=== PATIENT | female | born 1935 | race Asian ===

== ENCOUNTER → 2017-08-10 | Outpatient (CLI) | payer MEDICARE, OTHER ==
[~2017-08-10] MED LIST: ATOR10TA84 PO; ERGO500013 PO; IBAN150T PO
== END | disposition home or self-care (01) ==
LOC: RADPV 11:02
PROVIDERS: ATTEND Internal Medicine
DX: S32.402D Unspecified fracture of left acetabulum, subsequent encounter for fracture with routine healing (principal); X58.XXXD Exposure to other specified factors, subsequent encounter
CPT/HCPCS: 72170; 73552

== ENCOUNTER → 2018-01-26 | Outpatient (CLI) | payer MEDICARE, OTHER | END | disposition home or self-care (01) | LOC: RADPV 10:30 | PROVIDERS: ATTEND Internal Medicine | DX: I34.0 Nonrheumatic mitral (valve) insufficiency (principal); I34.1 Nonrheumatic mitral (valve) prolapse | CPT/HCPCS: 93306 ==

== ENCOUNTER → 2018-02-18 | Outpatient (CLI) | payer MEDICARE, OTHER ==
[~2018-02-18] VITALS: Ht 149.9 cm; Wt 40.0 kg
[2018-02-18 11:56] VITALS: BP 124/62
== END | disposition home or self-care (01) ==
LOC: SRCNTR 10:58
PROVIDERS: ATTEND Internal Medicine Clinical Cardiac Electrophysiology
DX: I10 Essential (primary) hypertension (principal); R00.2 Palpitations; R07.9 Chest pain, unspecified; R42 Dizziness and giddiness
CPT/HCPCS: G0463

== ENCOUNTER → 2018-02-22 | Outpatient (CLI) | payer MEDICARE, OTHER ==
[2018-02-22 09:37] VITALS: BP 134/65
== END | disposition home or self-care (01) ==
LOC: SRCNTR 09:30
PROVIDERS: ATTEND Internal Medicine Clinical Cardiac Electrophysiology
DX: I49.9 Cardiac arrhythmia, unspecified (principal)
CPT/HCPCS: G0463

== ENCOUNTER → 2018-03-02 | Outpatient (CLI) | payer MEDICARE, OTHER | END | disposition home or self-care (01) | LOC: RADPV 08:08 | PROVIDERS: ATTEND Internal Medicine Clinical Cardiac Electrophysiology | DX: I08.1 Rheumatic disorders of both mitral and tricuspid valves (principal); I50.1 Left ventricular failure, unspecified | CPT/HCPCS: 93306 ==

== ENCOUNTER → 2018-03-11 | Outpatient (CLI) | payer MEDICARE, OTHER ==
[~2018-03-11] VITALS: Ht 149.9 cm; Wt 39.5 kg
[2018-03-11 09:34] VITALS: BP 127/67
== END | disposition home or self-care (01) ==
LOC: SRCNTR 09:17
PROVIDERS: ATTEND Internal Medicine Clinical Cardiac Electrophysiology
DX: Z09 Encounter for follow-up examination after completed treatment for conditions other than malignant neoplasm (principal); R42 Dizziness and giddiness; R00.2 Palpitations; R07.9 Chest pain, unspecified; I10 Essential (primary) hypertension; Z95.818 Presence of other cardiac implants and grafts
CPT/HCPCS: G0463

== ENCOUNTER → 2018-08-15 | Outpatient (CLI) | payer MEDICARE, OTHER ==
[~2018-08-15] MED LIST changes: -IBAN150T PO; +IBAN150T16 PO; +PRED1 PO; +SULF1TAB41 PO
== END | disposition home or self-care (01) ==
LOC: RADPV 12:50
PROVIDERS: ATTEND Internal Medicine
DX: R05 Cough (principal); I70.0 Atherosclerosis of aorta; R91.8 Other nonspecific abnormal finding of lung field

== ENCOUNTER 2018-09-30 14:45 | Emergency (ER) | payer MEDICARE, OTHER ==
[~2018-09-30] VITALS: Ht 162.6 cm; Wt 45.0 kg
[~2018-09-30 14:45] MED LIST changes: -ATOR10TA84 PO; +ATOR20TA86 PO; +MIRT15 PO; -PRED1 PO; -SULF1TAB41 PO; +TIOT185 IH
[2018-09-30] MEDS ORDERED: ONDANSETRON HCL 4 MG/2 ML VIAL IVP ONE (15:00)
[2018-09-30] MEDS ORDERED: CeFAZolin 1 GM/DEXTROSE 50 ML IV ONE (15:00)
[2018-09-30] MEDS ORDERED: MORPHINE SULFATE 4 MG/ML SYRINGE IVP ONE ×2 (15:00→16:00)
[2018-09-30 15:11] LABS: BASOPHILS % (AUTO) 0.3 % (0.0-2.0); EOSINOPHILS % (AUTO) 0.6 % (1.0-6.0); HEMATOCRIT 36.7 % (36-46); HEMOGLOBIN 11.9 g/dL (12.0-16.0); LYMPHOCYTES # (AUTO) 2.8 K/uL (1.0-4.8); LYMPHOCYTES % (AUTO) 32.4 % (22.0-44.0); MEAN CORPUSCULAR HEMOGLOBIN 31.3 pg (26.0-34.0); MEAN CORPUSCULAR HGB CONC 32.5 G/dL (31.0-37.0); MEAN CORPUSCULAR VOLUME 96 fL (80-100); MONOCYTES # (AUTO) 0.5 K/uL (0.1-1.0); MONOCYTES % (AUTO) 5.4 % (2.0-9.0); NEUTROPHILS # (AUTO) 5.3 K/uL (1.8-7.7); NEUTROPHILS % (AUTO) 61.3 % (40.0-70.0); PLATELET COUNT (AUTO) 199 K/uL (150-450); RED BLOOD CELL COUNT(AUTO) 3.82 MIL/uL (4.00-5.20); RED CELL DISTRIBUTION WIDTH 16.9 % (11.5-14.5)
[2018-09-30] MEDS ORDERED: PERTUSS(ACELL),DIPH,TET VAC/PF 0.5 ML VIAL IM ONE (15:15)
[2018-09-30 15:19] LABS: ANION GAP 10 mmol/L (8-16); CALCIUM, TOTAL 9.3 mg/dL (8.8-10.5); CARBON DIOXIDE 26 mmol/L (22-29); CHLORIDE 107 mmol/L (98-107); CREATININE 0.84 mg/dL (0.60-1.30); GLUCOSE,RANDOM 111 mg/dL (70-110); POTASSIUM 3.9 mmol/L (3.5-5.1); SODIUM SERUM 143 mmol/L (136-145); UREA NITROGEN, BLOOD 22 mg/dL (7-18)
[2018-09-30 15:21] LABS: GLOMERULAR FILTR. RATE CALC > 60 mL/min (>60)
[2018-09-30 15:27] LABS: ALANINE AMINOTRANSFERASE 27 U/L (12-78); ALBUMIN 3.6 g/dL (3.4-5.0); ALKALINE PHOSPHATASE 62 U/L (46-116); ASPARTATE AMINOTRANSFERASE 29 U/L (15-37); BILIRUBIN,TOTAL 0.7 mg/dL (0.1-1.0); TOTAL PROTEIN, SERUM 7.5 g/dL (6.4-8.2)
[2018-09-30 15:43] LABS: INR 0.9 (0.9-1.1); PROTHROMBIN TIME 9.9 SEC (9.4-11.6)
[2018-09-30] MEDS ORDERED: LIDOCAINE 1% 10 ML VIAL INJ ONE (15:45)
[2018-09-30] MEDS ORDERED: BACITRACIN 0.9 GM PACKET OINTMENT TP ONE (15:45)
[2018-09-30] MEDS ORDERED: MORPHINE SULFATE 2 MG/ML SYRINGE IVP ONE (16:00)
[2018-09-30] MEDS ORDERED: LIDOCAINE 1%/EPI 1:200,000/PF 10 ML VIAL ONE (16:24)
[2018-09-30 17:55] VITALS: BP 130/79
== END 2018-09-30 18:10 | disposition short-term general hospital (02) ==
LOC: EMS 14:48
DX: S81.812A Laceration without foreign body, left lower leg, initial encounter (principal); I10 Essential (primary) hypertension; E78.00 Pure hypercholesterolemia, unspecified; Z87.891 Personal history of nicotine dependence; Z79.899 Other long term (current) drug therapy; W45.8XXA Other foreign body or object entering through skin, initial encounter; Y93.89 Activity, other specified; Y92.89 Other specified places as the place of occurrence of the external cause; Y99.8 Other external cause status
CPT/HCPCS: 36415; 73562; 73590; 73610; 80053; 85025; 85610; 85730; 90471; 90715; 96365; 96375; 96376; 99291; J0690; J2270 ×2; J2405; J3490 ×2

== ENCOUNTER → 2018-10-17 | Outpatient (CLI) | payer MEDICARE, OTHER ==
[~2018-10-17] MED LIST changes: +IOVERSOL 320 MG/ML 100 ML VIAL ONE; +SODIUM CHLORIDE 0.9% 100 ML ONE
== END | disposition home or self-care (01) ==
LOC: RADMN 08:27
PROVIDERS: ATTEND Internal Medicine
DX: J47.9 Bronchiectasis, uncomplicated (principal); R91.8 Other nonspecific abnormal finding of lung field; R59.9 Enlarged lymph nodes, unspecified
CPT/HCPCS: 71260; J7050; Q9967

== ENCOUNTER → 2019-01-02 | Outpatient (CLI) | payer MEDICARE, OTHER | END | disposition home or self-care (01) | LOC: RADMN 08:43 | PROVIDERS: ATTEND Internal Medicine | DX: R91.8 Other nonspecific abnormal finding of lung field (principal) | CPT/HCPCS: 71260; J7050; Q9967 ==

== ENCOUNTER → 2019-03-21 | Outpatient (CLI) | payer MEDICARE, OTHER ==
[~2019-03-21] MED LIST changes: -IOVERSOL 320 MG/ML 100 ML VIAL ONE; -SODIUM CHLORIDE 0.9% 100 ML ONE
[2019-03-23 13:30] LABS: QUANTIFERON+, Nil Value 0.03 IU/mL; QUANTIFERON+,Mitogen Value 0.52 IU/mL; QUANTIFERON+,TB1 Antigen Value 0.04 IU/mL; QUANTIFERON, TB GOLD PLUS Indeterminate (Negative)
== END | disposition home or self-care (01) ==
LOC: LABPV 11:07
PROVIDERS: ATTEND Internal Medicine Pulmonary Disease
DX: J98.4 Other disorders of lung (principal); J47.9 Bronchiectasis, uncomplicated
CPT/HCPCS: 86480; 86635

== ENCOUNTER 2019-04-02 14:37 | Inpatient (IN) | payer MEDICARE, OTHER ==
[~2019-04-02] VITALS: Ht 147.3 cm; Wt 37.1 kg
[2019-04-02] MEDS ORDERED: SULF1TAB42 PO (15:23)
[2019-04-02 16:05] LABS: BASOPHILS % (AUTO) 0.1 % (0.0-2.0); EOSINOPHILS % (AUTO) 0 % (1.0-6.0); HEMATOCRIT 41.3 % (36-46); HEMOGLOBIN 13.7 g/dL (12.0-16.0); LYMPHOCYTES # (AUTO) 1.1 K/uL (1.0-4.8); LYMPHOCYTES % (AUTO) 7.5 % (22.0-44.0); MEAN CORPUSCULAR HEMOGLOBIN 30.2 pg (26.0-34.0); MEAN CORPUSCULAR HGB CONC 33.3 G/dL (31.0-37.0); MEAN CORPUSCULAR VOLUME 91 fL (80-100); MONOCYTES # (AUTO) 0.8 K/uL (0.1-1.0); MONOCYTES % (AUTO) 5.4 % (2.0-9.0); NEUTROPHILS # (AUTO) 13.3 K/uL (1.8-7.7); PLATELET COUNT (AUTO) 185 K/uL (150-450); RED BLOOD CELL COUNT(AUTO) 4.55 MIL/uL (4.00-5.20); RED CELL DISTRIBUTION WIDTH 14.5 % (11.5-14.5)
[2019-04-02 16:21] LABS: TROPONIN I 0.03 ng/mL (0.00-0.05)
[2019-04-02 16:23] LABS: AMMONIA < 10 umol/L (11-32)
[2019-04-02] MEDS ORDERED: ERGO500014 PO (16:30)
[2019-04-02] MEDS ORDERED: SODIUM CHLORIDE 0.9% 500 ML IV ONE (16:30)
[2019-04-02] MEDS ORDERED: BACITRACIN 0.9 GM PACKET OINTMENT TP ONE (16:30)
[2019-04-02] MEDS ORDERED: DOXYCYCLINE HYCLATE 100 MG in DEXTROSE 5%-WATER 100 ML IV ONE (16:30)
[2019-04-02] MEDS ORDERED: CefTRIAXone 1 GM/DEXTROSE 50 ML IV ONE (16:30)
[2019-04-02 16:41] LABS: APPEARANCE,URINE CLEAR (CLEAR); BILIRUBIN,URINE NEGATIVE (NEGATIVE); GLUCOSE, URINE (UA) NEGATIVE (NEGATIVE); KETONES,URINE 40 mg/dL (NEGATIVE); LEUKOCYTE ESTERASE ,URINE NEGATIVE (NEGATIVE); NITRATE,URINE NEGATIVE (NEGATIVE); OCCULT BLOOD,URINE LARGE (NEGATIVE); PH,URINE 5.5 (5.0-8.0); PROTEIN,URINE POS 1+ (NEGATIVE); UROBILINOGEN,URINE 0.2 mg/dL (<=1.0)
[2019-04-02 16:45] LABS: PLATELET MORPHOLOGY COMMENT NORMAL
[2019-04-02 16:46] LABS: AMPHET/METH SCREEN,URINE NEGATIVE (NEGATIVE); BARBITURATE SCREEN, URINE NEGATIVE (NEGATIVE); BENZODIAZEPINES SCREEN,URINE NEGATIVE (NEGATIVE); CANNABINOID SCREEN,URINE NEGATIVE (NEGATIVE); COCAINE SCREEN,URINE NEGATIVE (NEGATIVE); METHADONE SCREEN, URINE NEGATIVE (NEGATIVE); OPIATE SCREEN,URINE NEGATIVE (NEGATIVE)
[2019-04-02 16:47] LABS: PHENCYCLIDINE SCREEN,URINE NEGATIVE (NEGATIVE)
[2019-04-02 16:51] LABS: ALANINE AMINOTRANSFERASE 56 U/L (12-78); ALBUMIN 3.6 g/dL (3.4-5.0); ALKALINE PHOSPHATASE 66 U/L (46-116); ANION GAP 8 mmol/L (8-16); ASPARTATE AMINOTRANSFERASE 176 U/L (15-37); B-TYPE NATRIURETIC PEPTIDE 82 pg/mL (0-100); BILIRUBIN,TOTAL 1.6 mg/dL (0.1-1.0); CALCIUM, TOTAL 8.8 mg/dL (8.8-10.5); CARBON DIOXIDE 27 mmol/L (22-29); CHLORIDE 97 mmol/L (98-107); CREATININE 0.83 mg/dL (0.60-1.30); GLUCOSE,RANDOM 145 mg/dL (70-110); POTASSIUM 4.1 mmol/L (3.5-5.1); SODIUM SERUM 132 mmol/L (136-145); TOTAL PROTEIN, SERUM 8.4 g/dL (6.4-8.2)
[2019-04-02 16:52] LABS: GLOMERULAR FILTR. RATE CALC > 60 mL/min (>60)
[2019-04-02 16:53] LABS: CREATINE KINASE, TOTAL ONLY 6223 U/L (26-192)
[2019-04-02 16:54] LABS: PROTHROMBIN TIME 10.1 SEC (9.4-11.6)
[2019-04-02 16:58] LABS: BACTERIA,URINE Few /HPF (None Seen); SQUAMOUS EPITHELIAL CELL,UR Few /LPF (None Seen)
[2019-04-02 17:09] LABS: UREA NITROGEN, BLOOD 25 mg/dL (7-18)
[2019-04-02] MEDS ORDERED: SODIUM CHLORIDE 0.9% 1,000 ML IV ONE (17:15)
[2019-04-02] MEDS ORDERED: ACETAMINOPHEN 325 MG TABLET PO PRN (17:30)
[2019-04-02] MEDS ORDERED: 0.9% SODIUM CHLORIDE 10 ML SYRINGE IVP PRN (17:30)
[2019-04-02] MEDS ORDERED: ONDANSETRON HCL 4 MG/2 ML VIAL IVP PRN (17:30)
[2019-04-02 19:15] VITALS: BP 104/62
[2019-04-02 23:44] VITALS: BP 101/63
[2019-04-03] MEDS ORDERED: OxyCODONE HCL/ACETAMINOPHEN 5-325 MG TABLET PO PRN ×2 (00:45)
[2019-04-03] MEDS ORDERED: ONDANSETRON HCL 4 MG/2 ML VIAL IVP PRN ×2 (00:45→13:45)
[2019-04-03] MEDS ORDERED: 0.9% SODIUM CHLORIDE 10 ML SYRINGE IVP PRN ×3 (00:45→13:45)
[2019-04-03] MEDS ORDERED: MAGNESIUM HYDROXIDE SUSPENSION 30 ML UDCUP PO PRN (00:45)
[2019-04-03] MEDS ORDERED: ALBUTEROL SULFATE 2.5 MG/0.5 ML NEB SOLUTION NEB PRN ×2 (00:45→13:45)
[2019-04-03] MEDS ORDERED: ACETAMINOPHEN 325 MG TABLET PO PRN ×2 (00:45→13:45)
[2019-04-03] MEDS: DOCUSATE SODIUM 100 MG CAPSULE PO SCH ×3 (00:45→20:46)
[2019-04-03] MEDS ORDERED: PNEUMOCOCCAL VACCINE POLYVALENT 0.5 ML VIAL [PPSV23] IM ONE (03:45)
[2019-04-03] MEDS ORDERED: INFLUENZA VIRUS VACCINE QVS 2019-20 (3YR+)/PF 60 MCG/0.5 ML SYRINGE IM ONE (03:45)
[2019-04-03 04:09] VITALS: BP 100/53
[2019-04-03 07:40] VITALS: BP 87/77
[2019-04-03] MEDS: FAMOTIDINE 10 MG/ML 2 ML VIAL IVP SCH (09:28)
[2019-04-03] MEDS: TIOTROPIUM BROMIDE 18 MCG/INH HANDIHALER [5] IH SCH (09:28)
[2019-04-03] MEDS: SODIUM CHLORIDE 0.9% 1,000 ML IV SCH ×3 (09:28→22:13)
[2019-04-03 10:42] VITALS: BP 95/54
[2019-04-03] MEDS ORDERED: IPRATROPIUM BROMIDE 0.5 MG/2.5 ML NEB SOLUTION NEB PRN (13:45)
[2019-04-03] MEDS ORDERED: ZOLPIDEM TARTRATE 5 MG TABLET PO PRN (13:45)
[2019-04-03] MEDS ORDERED: PIPERACILLIN/TAZO 3.375 GM/D5W 50 ML IV SCH (13:45)
[2019-04-03] MEDS ORDERED: VANCOMYCIN HCL 1 GM/D5% WATER 200 ML IV SCH (13:45)
[2019-04-03] MEDS ORDERED: MORPHINE SULFATE 2 MG/ML SYRINGE IVP PRN (13:45)
[2019-04-03 15:11] VITALS: BP 95/56
[2019-04-03] MEDS: HYDROCODONE/ACETAMINOPHEN 5-325 MG TABLET PO PRN (15:34)
[2019-04-03] MEDS: PANTOPRAZOLE SODIUM 40 MG DR TABLET PO SCH (15:34)
[2019-04-03] MEDS: PIPERACILLIN SODIUM/TAZOBACTAM 2.25 GM in DEXTROSE 5%-WATER 50 ML IV SCH ×2 (15:45→20:45)
[2019-04-03] MEDS ORDERED: VANCOMYCIN HCL 1 GM/D5% WATER 200 ML IV ONE (16:00)
[2019-04-03] MEDS ORDERED: CefTRIAXone 1 GM/DEXTROSE 50 ML IV SCH (17:00)
[2019-04-03] MEDS: MIRTAZAPINE 15 MG TABLET PO SCH (20:45)
[2019-04-03] MEDS: HEPARIN SODIUM,PORCINE 5,000 UNITS/ML VIAL SQ SCH (20:46)
[2019-04-03 20:50] VITALS: BP 92/53
[2019-04-03 23:50] VITALS: BP 122/59
[2019-04-04] MEDS: PIPERACILLIN SODIUM/TAZOBACTAM 2.25 GM in DEXTROSE 5%-WATER 50 ML IV SCH ×4 (03:23→16:28)
[2019-04-04 05:02] VITALS: BP 118/65
[2019-04-04] MEDS: SODIUM CHLORIDE 0.9% 1,000 ML IV SCH ×2 (05:50→16:26)
[2019-04-04] MEDS: PANTOPRAZOLE SODIUM 40 MG DR TABLET PO SCH (05:51)
[2019-04-04 06:32] LABS: BASOPHILS % (AUTO) 0.2 % (0.0-2.0); EOSINOPHILS % (AUTO) 0.9 % (1.0-6.0); HEMATOCRIT 32.4 % (36-46); HEMOGLOBIN 11.2 g/dL (12.0-16.0); LYMPHOCYTES # (AUTO) 1.7 K/uL (1.0-4.8); LYMPHOCYTES % (AUTO) 25.7 % (22.0-44.0); MEAN CORPUSCULAR HEMOGLOBIN 31.2 pg (26.0-34.0); MEAN CORPUSCULAR HGB CONC 34.5 G/dL (31.0-37.0); MEAN CORPUSCULAR VOLUME 90 fL (80-100); MONOCYTES # (AUTO) 0.5 K/uL (0.1-1.0); MONOCYTES % (AUTO) 8.2 % (2.0-9.0); NEUTROPHILS # (AUTO) 4.4 K/uL (1.8-7.7); PLATELET COUNT (AUTO) 154 K/uL (150-450); RED BLOOD CELL COUNT(AUTO) 3.58 MIL/uL (4.00-5.20); RED CELL DISTRIBUTION WIDTH 14.1 % (11.5-14.5)
[2019-04-04 06:37] LABS: HEMOGLOBIN A1C 4.3 % (4.5-6.2)
[2019-04-04 06:53] LABS: ANION GAP 7 mmol/L (8-16); CALCIUM, TOTAL 7.4 mg/dL (8.8-10.5); CARBON DIOXIDE 26 mmol/L (22-29); CHLORIDE 108 mmol/L (98-107); CHOL/HDL RATIO 2.7 (3.9-5.7); CHOLESTEROL 130 mg/dL (131-200); GLUCOSE,RANDOM 91 mg/dL (70-110); HDL CHOLESTEROL 48 mg/dL (40-60); LDL CHOL (CALC.) 62 mg/dL (0-130); POTASSIUM 3.7 mmol/L (3.5-5.1); SODIUM SERUM 141 mmol/L (136-145); THYROID STIMULATING HORMONE 1.01 uIU/mL (0.36-3.74); TRIGLYCERIDES 100 mg/dL (15-150); UREA NITROGEN, BLOOD 15 mg/dL (7-18)
[2019-04-04 06:55] LABS: GLOMERULAR FILTR. RATE CALC > 60 mL/min (>60)
[2019-04-04 07:42] VITALS: BP 103/42
[2019-04-04] MEDS: VANCOMYCIN HCL 1 GM/D5% WATER 200 ML IV SCH (08:24)
[2019-04-04] MEDS: FAMOTIDINE 10 MG/ML 2 ML VIAL IVP SCH (08:30)
[2019-04-04] MEDS: HEPARIN SODIUM,PORCINE 5,000 UNITS/ML VIAL SQ SCH ×2 (08:31→20:29)
[2019-04-04 09:11] LABS: CREATINE KINASE, TOTAL ONLY 2039 U/L (26-192)
[2019-04-04] MEDS ORDERED: IOVERSOL 350 MG/ML 100 ML VIAL ONE (09:24)
[2019-04-04] MEDS ORDERED: SODIUM CHLORIDE 0.9% 100 ML ONE (09:24)
[2019-04-04] MEDS: MULTIVITAMINS WITH MINERALS, THERAPEUTIC TABLET PO SCH (11:16)
[2019-04-04] MEDS: TIOTROPIUM BROMIDE 18 MCG/INH HANDIHALER [5] IH SCH (11:16)
[2019-04-04] MEDS: DOCUSATE SODIUM 100 MG CAPSULE PO SCH ×2 (11:16→20:29)
[2019-04-04 11:26] VITALS: BP 115/47
[2019-04-04 15:58] VITALS: BP 136/59
[2019-04-04] MEDS: HYDROCODONE/ACETAMINOPHEN 5-325 MG TABLET PO PRN (16:37)
[2019-04-04 20:14] VITALS: BP 119/62
[2019-04-04] MEDS: MIRTAZAPINE 15 MG TABLET PO SCH (20:29)
[2019-04-05 00:30] VITALS: BP 116/71
[2019-04-05] MEDS: SODIUM CHLORIDE 0.9% 1,000 ML IV SCH ×2 (00:30→05:25)
[2019-04-05] MEDS: PIPERACILLIN SODIUM/TAZOBACTAM 2.25 GM in DEXTROSE 5%-WATER 50 ML IV SCH ×2 (03:18→10:12)
[2019-04-05 04:20] VITALS: BP 136/64
[2019-04-05] MEDS: PANTOPRAZOLE SODIUM 40 MG DR TABLET PO SCH (05:26)
[2019-04-05 06:55] LABS: BASOPHILS % (AUTO) 0.5 % (0.0-2.0); EOSINOPHILS % (AUTO) 3.8 % (1.0-6.0); HEMATOCRIT 31.2 % (36-46); HEMOGLOBIN 10.6 g/dL (12.0-16.0); LYMPHOCYTES # (AUTO) 1.7 K/uL (1.0-4.8); LYMPHOCYTES % (AUTO) 26.1 % (22.0-44.0); MEAN CORPUSCULAR HEMOGLOBIN 31.1 pg (26.0-34.0); MEAN CORPUSCULAR HGB CONC 33.9 G/dL (31.0-37.0); MEAN CORPUSCULAR VOLUME 92 fL (80-100); MONOCYTES # (AUTO) 0.5 K/uL (0.1-1.0); MONOCYTES % (AUTO) 6.9 % (2.0-9.0); NEUTROPHILS # (AUTO) 4.1 K/uL (1.8-7.7); NEUTROPHILS % (AUTO) 62.7 % (40.0-70.0); PLATELET COUNT (AUTO) 177 K/uL (150-450); RED CELL DISTRIBUTION WIDTH 14.4 % (11.5-14.5)
[2019-04-05] MEDS: VANCOMYCIN HCL 1 GM/D5% WATER 200 ML IV SCH (07:31)
[2019-04-05 07:39] LABS: ALANINE AMINOTRANSFERASE 46 U/L (12-78); ALBUMIN 2.2 g/dL (3.4-5.0); ALKALINE PHOSPHATASE 42 U/L (46-116); ANION GAP 2 mmol/L (8-16); ASPARTATE AMINOTRANSFERASE 92 U/L (15-37); BILIRUBIN,TOTAL 0.6 mg/dL (0.1-1.0); CALCIUM, TOTAL 7.3 mg/dL (8.8-10.5); CARBON DIOXIDE 30 mmol/L (22-29); CHLORIDE 108 mmol/L (98-107); CREATINE KINASE, TOTAL ONLY 1440 U/L (26-192); CREATININE 0.63 mg/dL (0.60-1.30); GLOMERULAR FILTR. RATE CALC > 60 mL/min (>60); GLUCOSE,RANDOM 82 mg/dL (70-110); PHOSPHORUS 2.5 mg/dL (2.5-4.9); POTASSIUM 3.6 mmol/L (3.5-5.1); SODIUM SERUM 140 mmol/L (136-145); TOTAL PROTEIN, SERUM 5.7 g/dL (6.4-8.2); UREA NITROGEN, BLOOD 6 mg/dL (7-18); VANCOMYCIN,RANDOM 9.7 mcg/mL (25.0-50.0)
[2019-04-05 08:15] VITALS: BP 136/72
[2019-04-05] MEDS: DOCUSATE SODIUM 100 MG CAPSULE PO SCH (08:46)
[2019-04-05] MEDS: TIOTROPIUM BROMIDE 18 MCG/INH HANDIHALER [5] IH SCH (08:46)
[2019-04-05] MEDS: FAMOTIDINE 10 MG/ML 2 ML VIAL IVP SCH (08:47)
[2019-04-05] MEDS: HEPARIN SODIUM,PORCINE 5,000 UNITS/ML VIAL SQ SCH (08:47)
[2019-04-05] MEDS: MULTIVITAMINS WITH MINERALS, THERAPEUTIC TABLET PO SCH (08:48)
[2019-04-05 11:50] VITALS: BP 140/71
[2019-04-05] MEDS ORDERED: AMPICILLIN SODIUM/SULBACTAM NA 1.5 GM in SODIUM CHLORIDE 0.9% 50 ML IV SCH (15:00)
[2019-04-05 15:23] VITALS: BP 127/70
[2019-04-05] MEDS ORDERED: VANCOMYCIN HCL 500 MG in DEXTROSE 5%-WATER 100 ML IV SCH (19:00)
== END 2019-04-05 17:07 | DRG 557 ==
LOC: EMS 14:49 → 5N 18:21 → EMS 18:36 → 5N 04-04 10:00
PROVIDERS: ADMIT Internal Medicine; ATTEND Internal Medicine
DX: M62.82 Rhabdomyolysis (principal); G93.41 Metabolic encephalopathy; N39.0 Urinary tract infection, site not specified; R17 Unspecified jaundice; L03.115 Cellulitis of right lower limb; E87.1 Hypo-osmolality and hyponatremia; E86.0 Dehydration; I10 Essential (primary) hypertension; E78.5 Hyperlipidemia, unspecified; J44.9 Chronic obstructive pulmonary disease, unspecified; E78.00 Pure hypercholesterolemia, unspecified; W19.XXXA Unspecified fall, initial encounter; F17.200 Nicotine dependence, unspecified, uncomplicated; M81.0 Age-related osteoporosis without current pathological fracture; S50.311A Abrasion of right elbow, initial encounter; R31.9 Hematuria, unspecified; D64.9 Anemia, unspecified; B95.2 Enterococcus as the cause of diseases classified elsewhere; Y93.89 Activity, other specified; Y92.89 Other specified places as the place of occurrence of the external cause; Y99.8 Other external cause status; Z86.73 Personal history of transient ischemic attack (TIA), and cerebral infarction without residual deficits
CPT/HCPCS: 70450; 71250; 72125; 73552; 73701; 83036; 83605; 83735; 84100; 84443; 87040; 87070; 87086; 87205; 90686; 90732; 93005; 97110; 97116; 97162; 97166; 97530; 97535; G0480; J0295; J0696; J1644; J2405; J2543; J3370; J3490; J7030; J7040; J7050; J7060

== ENCOUNTER 2019-04-05 17:15 | Inpatient (IN) | payer MEDICARE, OTHER ==
[~2019-04-05] VITALS: Ht 147.3 cm; Wt 38.1 kg
[~2019-04-05 17:15] MED LIST changes: -ERGO500013 PO; +ERGO500014 PO; +SULF1TAB42 PO
[2019-04-05 17:20] VITALS: BP 137/72
[2019-04-05] MEDS ORDERED: ALBUTEROL SULFATE 2.5 MG/0.5 ML NEB SOLUTION NEB PRN (19:15)
[2019-04-05] MEDS ORDERED: MELATONIN 3 MG TABLET PO PRN (19:15)
[2019-04-05] MEDS ORDERED: ACETAMINOPHEN 325 MG TABLET PO PRN (19:15)
[2019-04-05] MEDS ORDERED: HYDROCODONE/ACETAMINOPHEN 5-325 MG TABLET PO PRN (19:15)
[2019-04-05] MEDS ORDERED: IPRATROPIUM BROMIDE 0.5 MG/2.5 ML NEB SOLUTION NEB PRN (19:15)
[2019-04-05] MEDS ORDERED: VANCOMYCIN HCL 1 GM/D5% WATER 200 ML IV ONE (20:00)
[2019-04-05] MEDS ORDERED: VANCOMYCIN HCL 500 MG in DEXTROSE 5%-WATER 100 ML IV ONE (20:00)
[2019-04-05] MEDS: HEPARIN SODIUM,PORCINE 5,000 UNITS/ML VIAL SQ SCH (21:25)
[2019-04-05] MEDS: MIRTAZAPINE 15 MG TABLET PO SCH (21:25)
[2019-04-05] MEDS: FAMOTIDINE 20 MG TABLET PO SCH (21:25)
[2019-04-05] MEDS: DOCUSATE SODIUM 100 MG CAPSULE PO SCH (21:25)
[2019-04-05] MEDS ORDERED: SODIUM CHLORIDE 0.9% 100 ML ONE (23:20)
[2019-04-05] MEDS: 0.9% SODIUM CHLORIDE 10 ML SYRINGE IVP SCH (23:42)
[2019-04-05] MEDS: AMPICILLIN SODIUM/SULBACTAM NA 1.5 GM in SODIUM CHLORIDE 0.9% 50 ML IV SCH (23:43)
[2019-04-06] MEDS ORDERED: AMPICILLIN SODIUM/SULBACTAM NA 1.5 GM/VIAL IM SCH
[2019-04-06 00:27] VITALS: BP 132/69
[2019-04-06] MEDS: AMPICILLIN SODIUM/SULBACTAM NA 1.5 GM in SODIUM CHLORIDE 0.9% 50 ML IV SCH ×4 (05:12→23:49)
[2019-04-06 06:14] LABS: BASOPHILS % (AUTO) 0.4 % (0.0-2.0); EOSINOPHILS % (AUTO) 2.8 % (1.0-6.0); HEMATOCRIT 31.6 % (36-46); HEMOGLOBIN 10.9 g/dL (12.0-16.0); LYMPHOCYTES # (AUTO) 2.1 K/uL (1.0-4.8); LYMPHOCYTES % (AUTO) 23.3 % (22.0-44.0); MEAN CORPUSCULAR HEMOGLOBIN 31.2 pg (26.0-34.0); MEAN CORPUSCULAR HGB CONC 34.5 G/dL (31.0-37.0); MEAN CORPUSCULAR VOLUME 90 fL (80-100); MONOCYTES # (AUTO) 0.5 K/uL (0.1-1.0); MONOCYTES % (AUTO) 5.8 % (2.0-9.0); NEUTROPHILS % (AUTO) 67.7 % (40.0-70.0); PLATELET COUNT (AUTO) 224 K/uL (150-450); RED BLOOD CELL COUNT(AUTO) 3.49 MIL/uL (4.00-5.20); RED CELL DISTRIBUTION WIDTH 14.3 % (11.5-14.5)
[2019-04-06 06:57] LABS: ALANINE AMINOTRANSFERASE 46 U/L (12-78); ALBUMIN 2.3 g/dL (3.4-5.0); ALKALINE PHOSPHATASE 49 U/L (46-116); ANION GAP 7 mmol/L (8-16); ASPARTATE AMINOTRANSFERASE 90 U/L (15-37); BILIRUBIN,TOTAL 0.7 mg/dL (0.1-1.0); CALCIUM, TOTAL 7.9 mg/dL (8.8-10.5); CARBON DIOXIDE 28 mmol/L (22-29); CHLORIDE 105 mmol/L (98-107); CREATININE 0.71 mg/dL (0.60-1.30); GLUCOSE,RANDOM 95 mg/dL (70-110); POTASSIUM 3.6 mmol/L (3.5-5.1); SODIUM SERUM 140 mmol/L (136-145); UREA NITROGEN, BLOOD 8 mg/dL (7-18)
[2019-04-06 06:58] LABS: CREATINE KINASE, TOTAL ONLY 1076 U/L (26-192); GLOMERULAR FILTR. RATE CALC > 60 mL/min (>60)
[2019-04-06] MEDS ORDERED: VANCOMYCIN HCL 500 MG in DEXTROSE 5%-WATER 100 ML IV SCH (07:00)
[2019-04-06] MEDS ORDERED: VANCOMYCIN HCL 1 GM/D5% WATER 200 ML IV SCH (07:00)
[2019-04-06] MEDS: TIOTROPIUM BROMIDE 18 MCG/INH HANDIHALER [5] IH SCH (08:40)
[2019-04-06] MEDS: HEPARIN SODIUM,PORCINE 5,000 UNITS/ML VIAL SQ SCH ×2 (08:41→20:03)
[2019-04-06] MEDS: DOCUSATE SODIUM 100 MG CAPSULE PO SCH (08:41)
[2019-04-06] MEDS: MULTIVITAMINS WITH MINERALS, THERAPEUTIC TABLET PO SCH (08:41)
[2019-04-06] MEDS: FAMOTIDINE 20 MG TABLET PO SCH ×2 (08:41→20:02)
[2019-04-06] MEDS: 0.9% SODIUM CHLORIDE 10 ML SYRINGE IVP SCH ×3 (08:42→23:49)
[2019-04-06 09:24] VITALS: BP 135/74
[2019-04-06 15:30] VITALS: BP 138/58
[2019-04-06] MEDS: SENNA 187 MG TABLET PO SCH (20:02)
[2019-04-06] MEDS: MIRTAZAPINE 15 MG TABLET PO SCH (20:02)
[2019-04-06] MEDS: DOCUSATE SODIUM 250 MG CAPSULE PO SCH (20:02)
[2019-04-06] MEDS ORDERED: SODIUM CHLORIDE 0.9% 100 ML ONE (23:57)
[2019-04-07] VITALS: BP 132/61
[2019-04-07] MEDS: AMPICILLIN SODIUM/SULBACTAM NA 1.5 GM in SODIUM CHLORIDE 0.9% 50 ML IV SCH ×4 (05:36→23:36)
[2019-04-07 07:48] VITALS: BP 160/78
[2019-04-07] MEDS: DOCUSATE SODIUM 250 MG CAPSULE PO SCH ×2 (08:43→22:19)
[2019-04-07] MEDS: TIOTROPIUM BROMIDE 18 MCG/INH HANDIHALER [5] IH SCH (08:43)
[2019-04-07] MEDS: HEPARIN SODIUM,PORCINE 5,000 UNITS/ML VIAL SQ SCH ×2 (08:44→22:19)
[2019-04-07] MEDS: FAMOTIDINE 20 MG TABLET PO SCH ×2 (08:44→22:19)
[2019-04-07] MEDS: MULTIVITAMINS WITH MINERALS, THERAPEUTIC TABLET PO SCH (08:44)
[2019-04-07] MEDS: 0.9% SODIUM CHLORIDE 10 ML SYRINGE IVP SCH ×3 (08:54→23:36)
[2019-04-07] MEDS ORDERED: SODIUM CHLORIDE 0.9% IRRIG BTL 1,000 ML IRRIG ONE (10:37)
[2019-04-07] MEDS: ValACYclovir HCL 500 MG TABLET PO SCH ×2 (14:49→22:19)
[2019-04-07 16:18] VITALS: BP 131/80
[2019-04-07] MEDS: SENNA 187 MG TABLET PO SCH (22:19)
[2019-04-07] MEDS: MIRTAZAPINE 15 MG TABLET PO SCH (22:19)
[2019-04-08 00:44] VITALS: BP 123/69
[2019-04-08] MEDS: AMPICILLIN SODIUM/SULBACTAM NA 1.5 GM in SODIUM CHLORIDE 0.9% 50 ML IV SCH ×4 (05:25→23:16)
[2019-04-08 08:39] VITALS: BP 115/68
[2019-04-08] MEDS: FAMOTIDINE 20 MG TABLET PO SCH ×2 (09:15→20:21)
[2019-04-08] MEDS: ValACYclovir HCL 500 MG TABLET PO SCH ×2 (09:15→20:21)
[2019-04-08] MEDS: TIOTROPIUM BROMIDE 18 MCG/INH HANDIHALER [5] IH SCH (09:15)
[2019-04-08] MEDS: DOCUSATE SODIUM 250 MG CAPSULE PO SCH ×2 (09:15→20:21)
[2019-04-08] MEDS: HEPARIN SODIUM,PORCINE 5,000 UNITS/ML VIAL SQ SCH ×2 (09:16→20:22)
[2019-04-08] MEDS: MULTIVITAMINS WITH MINERALS, THERAPEUTIC TABLET PO SCH (09:16)
[2019-04-08] MEDS: 0.9% SODIUM CHLORIDE 10 ML SYRINGE IVP SCH ×3 (09:16→23:17)
[2019-04-08] MEDS: ZINC SULFATE 220 MG CAPSULE PO SCH (12:37)
[2019-04-08] MEDS: CALCIUM CIT/VITAMIN D3 200 MG-250 UNITS TABLET PO SCH ×2 (12:38→20:21)
[2019-04-08 16:47] VITALS: BP 121/70
[2019-04-08] MEDS: SENNA 187 MG TABLET PO SCH (20:21)
[2019-04-08] MEDS: MIRTAZAPINE 15 MG TABLET PO SCH (20:21)
[2019-04-08 23:28] VITALS: BP 132/74
[2019-04-09] MEDS: AMPICILLIN SODIUM/SULBACTAM NA 1.5 GM in SODIUM CHLORIDE 0.9% 50 ML IV SCH ×4 (05:07→23:27)
[2019-04-09 08:01] VITALS: BP 112/63
[2019-04-09] MEDS: TIOTROPIUM BROMIDE 18 MCG/INH HANDIHALER [5] IH SCH (08:10)
[2019-04-09] MEDS: ZINC SULFATE 220 MG CAPSULE PO SCH (08:11)
[2019-04-09] MEDS: MULTIVITAMINS WITH MINERALS, THERAPEUTIC TABLET PO SCH (08:11)
[2019-04-09] MEDS: CALCIUM CIT/VITAMIN D3 200 MG-250 UNITS TABLET PO SCH ×2 (08:11→20:59)
[2019-04-09] MEDS: ValACYclovir HCL 500 MG TABLET PO SCH ×2 (08:11→20:59)
[2019-04-09] MEDS: DOCUSATE SODIUM 250 MG CAPSULE PO SCH ×2 (08:11→20:59)
[2019-04-09] MEDS: FAMOTIDINE 20 MG TABLET PO SCH ×2 (08:11→20:59)
[2019-04-09] MEDS: HEPARIN SODIUM,PORCINE 5,000 UNITS/ML VIAL SQ SCH ×2 (08:12→20:59)
[2019-04-09] MEDS: 0.9% SODIUM CHLORIDE 10 ML SYRINGE IVP SCH ×3 (08:12→23:27)
[2019-04-09] MEDS ORDERED: SODIUM CHLORIDE 0.9% 50 ML ONE (12:18)
[2019-04-09 15:59] VITALS: BP 112/58
[2019-04-09] MEDS: MIRTAZAPINE 15 MG TABLET PO SCH (20:59)
[2019-04-09] MEDS: SENNA 187 MG TABLET PO SCH (20:59)
[2019-04-09] MEDS ORDERED: SODIUM CHLORIDE 0.9% 100 ML ONE (23:32)
[2019-04-09 23:47] VITALS: BP 102/60
[2019-04-10] MEDS: AMPICILLIN SODIUM/SULBACTAM NA 1.5 GM in SODIUM CHLORIDE 0.9% 50 ML IV SCH ×4 (05:24→23:25)
[2019-04-10 07:58] VITALS: BP 132/71
[2019-04-10] MEDS: ZINC SULFATE 220 MG CAPSULE PO SCH (08:06)
[2019-04-10] MEDS: TIOTROPIUM BROMIDE 18 MCG/INH HANDIHALER [5] IH SCH (08:06)
[2019-04-10] MEDS: CALCIUM CIT/VITAMIN D3 200 MG-250 UNITS TABLET PO SCH ×2 (08:07→21:32)
[2019-04-10] MEDS: ValACYclovir HCL 500 MG TABLET PO SCH ×2 (08:07→21:36)
[2019-04-10] MEDS: DOCUSATE SODIUM 250 MG CAPSULE PO SCH ×2 (08:07→21:32)
[2019-04-10] MEDS: MULTIVITAMINS WITH MINERALS, THERAPEUTIC TABLET PO SCH (08:08)
[2019-04-10] MEDS: HEPARIN SODIUM,PORCINE 5,000 UNITS/ML VIAL SQ SCH ×2 (08:08→21:35)
[2019-04-10] MEDS: FAMOTIDINE 20 MG TABLET PO SCH ×2 (08:08→21:34)
[2019-04-10] MEDS: 0.9% SODIUM CHLORIDE 10 ML SYRINGE IVP SCH ×3 (08:09→23:24)
[2019-04-10 16:33] VITALS: BP 128/63
[2019-04-10] MEDS: SENNA 187 MG TABLET PO SCH (21:34)
[2019-04-10] MEDS: MIRTAZAPINE 15 MG TABLET PO SCH (21:34)
[2019-04-10] MEDS: COLD CREAM, SKIN EMOLLIENT 170 GM JAR TP SCH (21:35)
[2019-04-10 23:45] VITALS: BP 119/56
[2019-04-11] MEDS: AMPICILLIN SODIUM/SULBACTAM NA 1.5 GM in SODIUM CHLORIDE 0.9% 50 ML IV SCH ×4 (05:38→23:59)
[2019-04-11 07:25] VITALS: BP 114/64
[2019-04-11] MEDS: HEPARIN SODIUM,PORCINE 5,000 UNITS/ML VIAL SQ SCH ×2 (08:09→20:59)
[2019-04-11] MEDS: ValACYclovir HCL 500 MG TABLET PO SCH ×2 (08:09→20:59)
[2019-04-11] MEDS: CALCIUM CIT/VITAMIN D3 200 MG-250 UNITS TABLET PO SCH ×2 (08:09→20:59)
[2019-04-11] MEDS: 0.9% SODIUM CHLORIDE 10 ML SYRINGE IVP SCH ×3 (08:09→23:59)
[2019-04-11] MEDS: ZINC SULFATE 220 MG CAPSULE PO SCH (08:09)
[2019-04-11] MEDS: MULTIVITAMINS WITH MINERALS, THERAPEUTIC TABLET PO SCH (08:09)
[2019-04-11] MEDS: FAMOTIDINE 20 MG TABLET PO SCH ×2 (08:09→20:59)
[2019-04-11] MEDS: DOCUSATE SODIUM 250 MG CAPSULE PO SCH ×2 (08:09→20:59)
[2019-04-11] MEDS: TIOTROPIUM BROMIDE 18 MCG/INH HANDIHALER [5] IH SCH (11:04)
[2019-04-11 15:41] VITALS: BP 112/55
[2019-04-11] MEDS: PETROLATUM,WHITE 28 GM JELLY TP SCH ×3 (16:14→20:59)
[2019-04-11] MEDS: MIRTAZAPINE 15 MG TABLET PO SCH (20:59)
[2019-04-11] MEDS: SENNA 187 MG TABLET PO SCH (20:59)
[2019-04-11] MEDS: COLD CREAM, SKIN EMOLLIENT 170 GM JAR TP SCH (20:59)
[2019-04-12 00:12] VITALS: BP 112/56
[2019-04-12] MEDS: 0.9% SODIUM CHLORIDE 10 ML SYRINGE IVP SCH ×3 (08:00→16:24)
[2019-04-12] MEDS: ZINC SULFATE 220 MG CAPSULE PO SCH (08:22)
[2019-04-12] MEDS: TIOTROPIUM BROMIDE 18 MCG/INH HANDIHALER [5] IH SCH (08:22)
[2019-04-12] MEDS: ValACYclovir HCL 500 MG TABLET PO SCH ×2 (08:22→20:43)
[2019-04-12] MEDS: CALCIUM CIT/VITAMIN D3 200 MG-250 UNITS TABLET PO SCH ×2 (08:22→20:43)
[2019-04-12] MEDS: MULTIVITAMINS WITH MINERALS, THERAPEUTIC TABLET PO SCH (08:22)
[2019-04-12] MEDS: HEPARIN SODIUM,PORCINE 5,000 UNITS/ML VIAL SQ SCH ×2 (08:23→20:45)
[2019-04-12] MEDS: PETROLATUM,WHITE 28 GM JELLY TP SCH ×4 (08:23→20:45)
[2019-04-12] MEDS: FAMOTIDINE 20 MG TABLET PO SCH ×2 (08:23→20:45)
[2019-04-12] MEDS: DOCUSATE SODIUM 250 MG CAPSULE PO SCH ×2 (08:23→20:44)
[2019-04-12 10:28] VITALS: BP 139/70
[2019-04-12 15:45] VITALS: BP 110/57
[2019-04-12] MEDS: MIRTAZAPINE 15 MG TABLET PO SCH (20:43)
[2019-04-12] MEDS: SENNA 187 MG TABLET PO SCH (20:44)
[2019-04-12] MEDS: COLD CREAM, SKIN EMOLLIENT 170 GM JAR TP SCH (20:45)
[2019-04-12 23:44] VITALS: BP 127/65
[2019-04-13 07:30] VITALS: BP 128/60
[2019-04-13] MEDS: ValACYclovir HCL 500 MG TABLET PO SCH ×2 (08:08→20:15)
[2019-04-13] MEDS: CALCIUM CIT/VITAMIN D3 200 MG-250 UNITS TABLET PO SCH ×2 (08:08→20:15)
[2019-04-13] MEDS: TIOTROPIUM BROMIDE 18 MCG/INH HANDIHALER [5] IH SCH (08:08)
[2019-04-13] MEDS: FAMOTIDINE 20 MG TABLET PO SCH ×2 (08:09→20:16)
[2019-04-13] MEDS: DOCUSATE SODIUM 250 MG CAPSULE PO SCH ×2 (08:09→20:15)
[2019-04-13] MEDS: HEPARIN SODIUM,PORCINE 5,000 UNITS/ML VIAL SQ SCH ×2 (08:09→20:15)
[2019-04-13] MEDS: ZINC SULFATE 220 MG CAPSULE PO SCH (08:09)
[2019-04-13] MEDS: MULTIVITAMINS WITH MINERALS, THERAPEUTIC TABLET PO SCH (08:10)
[2019-04-13] MEDS: PETROLATUM,WHITE 28 GM JELLY TP SCH ×4 (08:13→20:15)
[2019-04-13 16:01] VITALS: BP 104/57
[2019-04-13] MEDS: SENNA 187 MG TABLET PO SCH (20:16)
[2019-04-13] MEDS: COLD CREAM, SKIN EMOLLIENT 170 GM JAR TP SCH (20:16)
[2019-04-13] MEDS: MIRTAZAPINE 15 MG TABLET PO SCH (20:16)
[2019-04-14] MEDS ORDERED: FAMO20 PO (05:25)
[2019-04-14] MEDS ORDERED: ZINC220 PO (05:25)
[2019-04-14] MEDS ORDERED: MIRT15 PO (05:25)
[2019-04-14] MEDS ORDERED: SENN8.6T90 PO (05:25)
[2019-04-14] MEDS ORDERED: MULT-1239 PO (05:25)
[2019-04-14 05:30] VITALS: BP 131/68
[2019-04-14] MEDS: TIOTROPIUM BROMIDE 18 MCG/INH HANDIHALER [5] IH SCH (08:49)
[2019-04-14] MEDS: ValACYclovir HCL 500 MG TABLET PO SCH (08:50)
[2019-04-14] MEDS: FAMOTIDINE 20 MG TABLET PO SCH (08:50)
[2019-04-14] MEDS: CALCIUM CIT/VITAMIN D3 200 MG-250 UNITS TABLET PO SCH (08:50)
[2019-04-14] MEDS: MULTIVITAMINS WITH MINERALS, THERAPEUTIC TABLET PO SCH (08:50)
[2019-04-14] MEDS: DOCUSATE SODIUM 250 MG CAPSULE PO SCH (08:50)
[2019-04-14] MEDS: PETROLATUM,WHITE 28 GM JELLY TP SCH (08:50)
[2019-04-14] MEDS: HEPARIN SODIUM,PORCINE 5,000 UNITS/ML VIAL SQ SCH (08:51)
[2019-04-14] MEDS: ZINC SULFATE 220 MG CAPSULE PO SCH (08:52)
[2019-04-14 09:26] VITALS: BP 117/70
[2019-04-14] MEDS ORDERED: CALC-840 PO (10:22)
[2019-04-14] MEDS ORDERED: DOCU-342 PO (10:23)
== END 2019-04-14 11:25 | disposition home health service (06) | DRG 71 ==
LOC: 2WR 17:15
PROVIDERS: ADMIT Physical Medicine & Rehabilitation; ATTEND Physical Medicine & Rehabilitation
DX: G93.41 Metabolic encephalopathy (principal); E46 Unspecified protein-calorie malnutrition; N39.0 Urinary tract infection, site not specified; Z68.1 Body mass index [BMI] 19.9 or less, adult; E11.52 Type 2 diabetes mellitus with diabetic peripheral angiopathy with gangrene; L03.116 Cellulitis of left lower limb; R53.81 Other malaise; E78.00 Pure hypercholesterolemia, unspecified; E78.5 Hyperlipidemia, unspecified; E86.0 Dehydration; E87.6 Hypokalemia; I10 Essential (primary) hypertension; J44.9 Chronic obstructive pulmonary disease, unspecified; M81.0 Age-related osteoporosis without current pathological fracture; Z86.73 Personal history of transient ischemic attack (TIA), and cerebral infarction without residual deficits; B00.9 Herpesviral infection, unspecified; K59.00 Constipation, unspecified; L89.152 Pressure ulcer of sacral region, stage 2; Z79.899 Other long term (current) drug therapy
CPT/HCPCS: 87081; 97110; 97116; 97150; 97162; 97166; 97530; 97535; 99366; J0295; J1644; J3370; J7050; J7060

== ENCOUNTER → 2019-08-14 | Outpatient (CLI) | payer MEDICARE, OTHER ==
[~2019-08-14] MED LIST changes: -ATOR20TA86 PO; +CALC-840 PO; +DOCU-342 PO; -ERGO500014 PO; +FAMO20 PO; -IBAN150T16 PO; +MIRT-92 PO; -MIRT15 PO; +MULT-1239 PO; -SULF1TAB42 PO; +ZINC1CAP2 PO
== END | disposition home or self-care (01) ==
LOC: RADPV 07:49
PROVIDERS: ATTEND Internal Medicine Pulmonary Disease
DX: J44.9 Chronic obstructive pulmonary disease, unspecified (principal); J90 Pleural effusion, not elsewhere classified; I70.0 Atherosclerosis of aorta

== ENCOUNTER → 2020-07-12 | Outpatient (CLI) | payer MEDICARE, OTHER ==
[~2020-07-12] MED LIST changes: -DOCU-342 PO; +DOCU-350 PO; +MIRT-89 PO; -MIRT-92 PO; -ZINC1CAP2 PO; +ZINC220C14 PO
== END | disposition home or self-care (01) ==
LOC: RADPV 11:05
PROVIDERS: ATTEND Internal Medicine
DX: M79.89 Other specified soft tissue disorders (principal); M25.572 Pain in left ankle and joints of left foot
CPT/HCPCS: 73610-TC

== ENCOUNTER → 2020-10-08 | Outpatient (CLI) | payer MEDICARE, OTHER | END | disposition home or self-care (01) | LOC: RADMN 12:15 | PROVIDERS: ATTEND Internal Medicine Pulmonary Disease | DX: I71.2 Thoracic aortic aneurysm, without rupture (principal); R91.8 Other nonspecific abnormal finding of lung field; J47.9 Bronchiectasis, uncomplicated; J98.4 Other disorders of lung | CPT/HCPCS: 71250 ==

== ENCOUNTER 2021-01-30 20:04 | Inpatient (IN) | payer MEDICARE, OTHER ==
[~2021-01-30] VITALS: Ht 162.6 cm; Wt 35.6 kg
[2021-01-30] MEDS ORDERED: SODIUM CHLORIDE 0.9% 1,350 ML IV ONE (21:15)
[2021-01-30 21:50] LABS: COVID AG,FIA SOURCE NASOPHARYNGEAL
[2021-01-30 22:00] LABS: BASOPHILS % (AUTO) 0.8 % (0.0-2.0); EOSINOPHILS % (AUTO) 0 % (1.0-6.0); HEMATOCRIT 38.1 % (36-46); HEMOGLOBIN 12.2 g/dL (12.0-16.0); LYMPHOCYTES # (AUTO) 0.9 K/uL (1.0-4.8); LYMPHOCYTES % (AUTO) 6.2 % (22.0-44.0); MEAN CORPUSCULAR HEMOGLOBIN 28.9 pg (26.0-34.0); MEAN CORPUSCULAR HGB CONC 32.2 G/dL (31.0-37.0); MEAN CORPUSCULAR VOLUME 90 fL (80-100); MONOCYTES # (AUTO) 0.6 K/uL (0.1-1.0); MONOCYTES % (AUTO) 4.1 % (2.0-9.0); NEUTROPHILS # (AUTO) 12.6 K/uL (1.8-7.7); PLATELET COUNT (AUTO) 191 K/uL (150-450); RED BLOOD CELL COUNT(AUTO) 4.24 MIL/uL (4.00-5.20); RED CELL DISTRIBUTION WIDTH 14.3 % (11.5-14.5)
[2021-01-30 22:04] LABS: NEUTROPHILS % (AUTO) 88.9 % (40.0-70.0)
[2021-01-30 22:10] LABS: INR 1.1 (0.9-1.1); PROTHROMBIN TIME 11.4 SEC (9.4-11.6)
[2021-01-30] MEDS ORDERED: CefTRIAXone 1 GM/DEXTROSE 50 ML IV ONE (22:15)
[2021-01-30 22:24] LABS: ANION GAP 12 mmol/L (8-16); CALCIUM, TOTAL 9.2 mg/dL (8.8-10.5); CARBON DIOXIDE 26 mmol/L (22-29); CHLORIDE 100 mmol/L (98-107); CREATININE 1.16 mg/dL (0.60-1.30); GLOMERULAR FILTR. RATE CALC 45 mL/min (>60); GLUCOSE,RANDOM 176 mg/dL (70-110); POTASSIUM 3.9 mmol/L (3.5-5.1); SODIUM SERUM 138 mmol/L (136-145); UREA NITROGEN, BLOOD 32 mg/dL (7-18)
[2021-01-30 22:30] LABS: ALANINE AMINOTRANSFERASE 14 U/L (12-78); ALKALINE PHOSPHATASE 63 U/L (46-116); ASPARTATE AMINOTRANSFERASE 23 U/L (15-37); BILIRUBIN,TOTAL 1.4 mg/dL (0.1-1.0); TOTAL PROTEIN, SERUM 8.6 g/dL (6.4-8.2)
[2021-01-30] MEDS ORDERED: ACETAMINOPHEN 325 MG TABLET PO PRN (22:45)
[2021-01-30] MEDS ORDERED: ONDANSETRON HCL 4 MG/2 ML VIAL IVP PRN (22:45)
[2021-01-30 23:27] LABS: APPEARANCE,URINE CLEAR (CLEAR); GLUCOSE, URINE (UA) NEGATIVE (NEGATIVE); KETONES,URINE 15 mg/dL (NEGATIVE); LEUKOCYTE ESTERASE ,URINE NEGATIVE (NEGATIVE); NITRATE,URINE NEGATIVE (NEGATIVE); OCCULT BLOOD,URINE MODERATE (NEGATIVE); PH,URINE 5.5 (5.0-8.0); PROTEIN,URINE TRACE (NEGATIVE)
[2021-01-30 23:29] LABS: BILIRUBIN,URINE PRELIM. POSITIVE (NEGATIVE)
[2021-01-31 00:42] LABS: BACTERIA,URINE Few /HPF (None Seen); SQUAMOUS EPITHELIAL CELL,UR Few /LPF (None Seen); WBC,URINE 0-2 /HPF (0-5)
[2021-01-31 08:11] VITALS: BP 111/67
[2021-01-31 10:43] VITALS: BP 100/55
[2021-01-31] MEDS ORDERED: ACETAMINOPHEN 325 MG TABLET PO PRN ×2 (10:45→11:15)
[2021-01-31] MEDS ORDERED: CefTRIAXone 1 GM/DEXTROSE 50 ML IV SCH (11:15)
[2021-01-31] MEDS ORDERED: 0.9% SODIUM CHLORIDE 10 ML SYRINGE IVP PRN ×2 (11:15)
[2021-01-31] MEDS ORDERED: HYDROCODONE/ACETAMINOPHEN 5-325 MG TABLET PO PRN (11:15)
[2021-01-31] MEDS ORDERED: ONDANSETRON HCL 4 MG/2 ML VIAL IVP PRN (11:15)
[2021-01-31] MEDS ORDERED: IPRATROPIUM BROMIDE 0.5 MG/2.5 ML NEB SOLUTION NEB PRN (11:15)
[2021-01-31] MEDS ORDERED: MORPHINE SULFATE 2 MG/ML SYRINGE IVP PRN (11:15)
[2021-01-31] MEDS ORDERED: ALBUTEROL SULFATE 2.5 MG/0.5 ML NEB SOLUTION NEB PRN (11:15)
[2021-01-31] MEDS ORDERED: MAGNESIUM HYDROXIDE SUSPENSION 30 ML UDCUP PO PRN (11:15)
[2021-01-31] MEDS ORDERED: ZOLPIDEM TARTRATE 5 MG TABLET PO PRN (11:15)
[2021-01-31] MEDS ORDERED: DEXTROSE 5%-0.9% SODIUM CHL 1,000 ML IV ONE (11:30)
[2021-01-31] MEDS: HEPARIN SODIUM,PORCINE 5,000 UNITS/ML VIAL SQ SCH ×2 (12:32→21:35)
[2021-01-31] MEDS: CefTRIAXone 1 GM/DEXTROSE 50 ML IV SCH (12:34)
[2021-01-31 14:37] VITALS: BP 108/62
[2021-01-31 17:06] LABS: APPEARANCE,URINE CLEAR (CLEAR); BILIRUBIN,URINE NEGATIVE (NEGATIVE); GLUCOSE, URINE (UA) NEGATIVE (NEGATIVE); KETONES,URINE 15 mg/dL (NEGATIVE); LEUKOCYTE ESTERASE ,URINE NEGATIVE (NEGATIVE); NITRATE,URINE NEGATIVE (NEGATIVE); OCCULT BLOOD,URINE SMALL (NEGATIVE); PH,URINE 6.5 (5.0-8.0); PROTEIN,URINE TRACE (NEGATIVE)
[2021-01-31 17:08] LABS: SODIUM,URINE RANDOM 232 mmol/l (20-110)
[2021-01-31] MEDS ORDERED: DEXTROSE 5%-0.9% SODIUM CHL 1,000 ML IV SCH (17:30)
[2021-01-31 18:10] LABS: BACTERIA,URINE None Seen /HPF (None Seen); WBC,URINE None Seen /HPF (0-5)
[2021-01-31 19:43] VITALS: BP 104/59
[2021-01-31] MEDS ORDERED: FAMOTIDINE 20 MG TABLET PO SCH (21:00)
[2021-01-31] MEDS: FAMOTIDINE 20 MG TABLET PO SCH (21:34)
[2021-01-31] MEDS: DOCUSATE SODIUM 250 MG CAPSULE PO SCH (21:34)
[2021-01-31] MEDS: CALCIUM CIT/VITAMIN D3 200 MG-250 UNITS TABLET PO SCH (21:34)
[2021-01-31] MEDS: ATORVASTATIN CALCIUM 20 MG TABLET PO SCH (21:35)
[2021-01-31] MEDS: MIRTAZAPINE 15 MG TABLET PO SCH (21:35)
[2021-02-01 00:21] VITALS: BP 105/57
[2021-02-01 04:47] VITALS: BP 99/54
[2021-02-01 07:21] LABS: BASOPHILS % (AUTO) 1.4 % (0.0-2.0); EOSINOPHILS % (AUTO) 1.4 % (1.0-6.0); HEMATOCRIT 30.7 % (36-46); HEMOGLOBIN 10.1 g/dL (12.0-16.0); LYMPHOCYTES # (AUTO) 1.7 K/uL (1.0-4.8); MEAN CORPUSCULAR HEMOGLOBIN 29.4 pg (26.0-34.0); MEAN CORPUSCULAR VOLUME 89 fL (80-100); MONOCYTES # (AUTO) 0.6 K/uL (0.1-1.0); MONOCYTES % (AUTO) 8.8 % (2.0-9.0); NEUTROPHILS # (AUTO) 4.4 K/uL (1.8-7.7); NEUTROPHILS % (AUTO) 63.4 % (40.0-70.0); PLATELET COUNT (AUTO) 117 K/uL (150-450); RED BLOOD CELL COUNT(AUTO) 3.45 MIL/uL (4.00-5.20); RED CELL DISTRIBUTION WIDTH 14.3 % (11.5-14.5)
[2021-02-01 07:39] LABS: ALBUMIN 2.4 g/dL (3.4-5.0); ALKALINE PHOSPHATASE 36 U/L (46-116); ANION GAP 6 mmol/L (8-16); ASPARTATE AMINOTRANSFERASE 27 U/L (15-37); BILIRUBIN,TOTAL 1.1 mg/dL (0.1-1.0); C-REACTIVE PROTEIN QUANT 0.25 mg/dL (0.00-0.30); CARBON DIOXIDE 23 mmol/L (22-29); CHLORIDE 104 mmol/L (98-107); CREATININE 0.58 mg/dL (0.60-1.30); D-DIMER 0.97 mg/L FEU (0.00-0.50); GLUCOSE,RANDOM 94 mg/dL (70-110); PHOSPHORUS 1.8 mg/dL (2.5-4.9); SODIUM SERUM 133 mmol/L (136-145); TOTAL PROTEIN, SERUM 5.7 g/dL (6.4-8.2); UREA NITROGEN, BLOOD 8 mg/dL (7-18)
[2021-02-01 07:54] LABS: GLOMERULAR FILTR. RATE CALC > 60 mL/min (>60)
[2021-02-01 07:56] VITALS: BP 89/53
[2021-02-01 08:06] LABS: ALANINE AMINOTRANSFERASE 9 U/L (12-78)
[2021-02-01] MEDS: HEPARIN SODIUM,PORCINE 5,000 UNITS/ML VIAL SQ SCH ×2 (08:22→21:06)
[2021-02-01] MEDS: MULTIVITAMINS WITH MINERALS, THERAPEUTIC TABLET PO SCH (08:22)
[2021-02-01] MEDS: TIOTROPIUM BROMIDE 18 MCG/INH HANDIHALER [5] IH SCH (08:22)
[2021-02-01] MEDS: CALCIUM CIT/VITAMIN D3 200 MG-250 UNITS TABLET PO SCH ×2 (08:22→21:05)
[2021-02-01] MEDS: ZINC SULFATE 220 MG CAPSULE PO SCH (08:23)
[2021-02-01] MEDS: DOCUSATE SODIUM 250 MG CAPSULE PO SCH ×2 (08:23→21:06)
[2021-02-01 09:52] LABS: INR 1.1 (0.9-1.1); PROTHROMBIN TIME 11.5 SEC (9.4-11.6)
[2021-02-01 09:54] LABS: CHOL/HDL RATIO 3.8 (3.9-5.7); CHOLESTEROL 144 mg/dL (131-200); HDL CHOLESTEROL 38 mg/dL (40-60); LDL CHOL (CALC.) 90 mg/dL (0-130); THYROID STIMULATING HORMONE 0.48 uIU/mL (0.36-3.74); TRIGLYCERIDES 80 mg/dL (15-150)
[2021-02-01 09:57] LABS: HEMOGLOBIN A1C 5.3 % (3.8-5.6)
[2021-02-01] MEDS ORDERED: POTASSIUM CHLORIDE 20 MEQ ER TABLET PO ONE (10:30)
[2021-02-01] MEDS: CefTRIAXone 1 GM/DEXTROSE 50 ML IV SCH (11:03)
[2021-02-01 12:02] VITALS: BP 97/50
[2021-02-01 15:52] VITALS: BP 89/52
[2021-02-01 20:15] VITALS: BP 96/49
[2021-02-01] MEDS ORDERED: SODIUM CHLORIDE 3% 15 ML NEB SOLUTION NEB ONE ×2 (20:23→22:34)
[2021-02-01] MEDS: FAMOTIDINE 20 MG TABLET PO SCH (21:06)
[2021-02-01] MEDS: MIRTAZAPINE 15 MG TABLET PO SCH (21:06)
[2021-02-01] MEDS: ATORVASTATIN CALCIUM 20 MG TABLET PO SCH (21:06)
[2021-02-02 00:29] VITALS: BP 99/60
[2021-02-02 04:55] VITALS: BP 94/52
[2021-02-02 07:00] LABS: BASOPHILS % (AUTO) 0.9 % (0.0-2.0); EOSINOPHILS % (AUTO) 4.4 % (1.0-6.0); HEMATOCRIT 33.2 % (36-46); LYMPHOCYTES # (AUTO) 1.5 K/uL (1.0-4.8); MEAN CORPUSCULAR HEMOGLOBIN 29.6 pg (26.0-34.0); MEAN CORPUSCULAR HGB CONC 33.1 G/dL (31.0-37.0); MEAN CORPUSCULAR VOLUME 90 fL (80-100); MONOCYTES # (AUTO) 0.5 K/uL (0.1-1.0); NEUTROPHILS % (AUTO) 56.7 % (40.0-70.0); PLATELET COUNT (AUTO) 124 K/uL (150-450); RED BLOOD CELL COUNT(AUTO) 3.71 MIL/uL (4.00-5.20); RED CELL DISTRIBUTION WIDTH 14.3 % (11.5-14.5)
[2021-02-02 07:25] LABS: ALANINE AMINOTRANSFERASE 13 U/L (12-78); ALBUMIN 2.6 g/dL (3.4-5.0); ALKALINE PHOSPHATASE 42 U/L (46-116); ANION GAP 5 mmol/L (8-16); ASPARTATE AMINOTRANSFERASE 26 U/L (15-37); BILIRUBIN,TOTAL 0.9 mg/dL (0.1-1.0); CALCIUM, TOTAL 7.9 mg/dL (8.8-10.5); CARBON DIOXIDE 25 mmol/L (22-29); CHLORIDE 107 mmol/L (98-107); CREATININE 0.57 mg/dL (0.60-1.30); GLUCOSE,RANDOM 85 mg/dL (70-110); POTASSIUM 3.8 mmol/L (3.5-5.1); SODIUM SERUM 137 mmol/L (136-145); TOTAL PROTEIN, SERUM 6.1 g/dL (6.4-8.2); UREA NITROGEN, BLOOD 8 mg/dL (7-18)
[2021-02-02 07:26] LABS: GLOMERULAR FILTR. RATE CALC > 60 mL/min (>60)
[2021-02-02 08:14] VITALS: BP 100/54
[2021-02-02] MEDS: HEPARIN SODIUM,PORCINE 5,000 UNITS/ML VIAL SQ SCH ×2 (09:00→22:03)
[2021-02-02] MEDS: ZINC SULFATE 220 MG CAPSULE PO SCH (09:00)
[2021-02-02] MEDS: DOCUSATE SODIUM 250 MG CAPSULE PO SCH ×2 (09:00→22:03)
[2021-02-02] MEDS: TIOTROPIUM BROMIDE 18 MCG/INH HANDIHALER [5] IH SCH (09:00)
[2021-02-02] MEDS: CALCIUM CIT/VITAMIN D3 200 MG-250 UNITS TABLET PO SCH ×2 (09:00→22:02)
[2021-02-02] MEDS: MULTIVITAMINS WITH MINERALS, THERAPEUTIC TABLET PO SCH (09:00)
[2021-02-02] MEDS: CefTRIAXone 1 GM/DEXTROSE 50 ML IV SCH (11:09)
[2021-02-02] MEDS ORDERED: SODIUM CHLORIDE 0.9% 1,000 ML ONE (11:15)
[2021-02-02 12:41] VITALS: BP 99/58
[2021-02-02 15:59] VITALS: BP 101/54
[2021-02-02 20:19] VITALS: BP 100/60
[2021-02-02] MEDS: MIRTAZAPINE 15 MG TABLET PO SCH (22:02)
[2021-02-02] MEDS: FAMOTIDINE 20 MG TABLET PO SCH (22:02)
[2021-02-02] MEDS: ATORVASTATIN CALCIUM 20 MG TABLET PO SCH (22:03)
[2021-02-03 00:25] VITALS: BP 94/54
[2021-02-03 04:33] VITALS: BP 100/57
[2021-02-03 06:26] LABS: EOSINOPHILS % (AUTO) 5.2 % (1.0-6.0); HEMATOCRIT 33.6 % (36-46); HEMOGLOBIN 11.1 g/dL (12.0-16.0); LYMPHOCYTES # (AUTO) 1.7 K/uL (1.0-4.8); LYMPHOCYTES % (AUTO) 33.1 % (22.0-44.0); MEAN CORPUSCULAR HEMOGLOBIN 29.3 pg (26.0-34.0); MEAN CORPUSCULAR HGB CONC 32.9 G/dL (31.0-37.0); MEAN CORPUSCULAR VOLUME 89 fL (80-100); MONOCYTES # (AUTO) 0.4 K/uL (0.1-1.0); MONOCYTES % (AUTO) 7.2 % (2.0-9.0); NEUTROPHILS # (AUTO) 2.8 K/uL (1.8-7.7); NEUTROPHILS % (AUTO) 53.5 % (40.0-70.0); PLATELET COUNT (AUTO) 147 K/uL (150-450); RED BLOOD CELL COUNT(AUTO) 3.77 MIL/uL (4.00-5.20); RED CELL DISTRIBUTION WIDTH 13.9 % (11.5-14.5)
[2021-02-03 06:44] LABS: ALANINE AMINOTRANSFERASE 14 U/L (12-78); ALBUMIN 2.8 g/dL (3.4-5.0); ALKALINE PHOSPHATASE 49 U/L (46-116); ANION GAP 3 mmol/L (8-16); ASPARTATE AMINOTRANSFERASE 23 U/L (15-37); BILIRUBIN,TOTAL 0.6 mg/dL (0.1-1.0); CALCIUM, TOTAL 8.1 mg/dL (8.8-10.5); CARBON DIOXIDE 25 mmol/L (22-29); CHLORIDE 106 mmol/L (98-107); CREATININE 0.65 mg/dL (0.60-1.30); GLUCOSE,RANDOM 87 mg/dL (70-110); PHOSPHORUS 2.8 mg/dL (2.5-4.9); POTASSIUM 3.7 mmol/L (3.5-5.1); SODIUM SERUM 134 mmol/L (136-145); TOTAL PROTEIN, SERUM 6.4 g/dL (6.4-8.2); UREA NITROGEN, BLOOD 10 mg/dL (7-18)
[2021-02-03 06:45] LABS: GLOMERULAR FILTR. RATE CALC > 60 mL/min (>60)
[2021-02-03] MEDS: CALCIUM CIT/VITAMIN D3 200 MG-250 UNITS TABLET PO SCH (08:13)
[2021-02-03] MEDS: MULTIVITAMINS WITH MINERALS, THERAPEUTIC TABLET PO SCH (08:13)
[2021-02-03] MEDS: HEPARIN SODIUM,PORCINE 5,000 UNITS/ML VIAL SQ SCH (08:13)
[2021-02-03] MEDS: ZINC SULFATE 220 MG CAPSULE PO SCH (08:13)
[2021-02-03] MEDS: DOCUSATE SODIUM 250 MG CAPSULE PO SCH (08:13)
[2021-02-03] MEDS: TIOTROPIUM BROMIDE 18 MCG/INH HANDIHALER [5] IH SCH (08:14)
[2021-02-03 08:15] VITALS: BP 98/60
[2021-02-03] MEDS ORDERED: SODIUM CHLORIDE 0.9% 500 ML IV ONE (10:42)
[2021-02-03] MEDS: CefTRIAXone 1 GM/DEXTROSE 50 ML IV SCH (10:47)
[2021-02-03 11:25] VITALS: BP 102/55
[2021-02-03 15:53] VITALS: BP_SYST 102; BP_SYST 150; BP_DIAS 57; BP_DIAS 71
[2021-02-03] MEDS ORDERED: LACTULOSE 20 GM/30 ML SOLUTION UDCUP PO ONE (16:30)
== END 2021-02-03 18:00 | disposition home health service (06) | DRG 682 ==
LOC: EMS 20:10 → 5N 22:37 → 5S 22:37 → UNDOADMIN 22:37
PROVIDERS: ADMIT Internal Medicine; ATTEND Internal Medicine
DX: N17.9 Acute kidney failure, unspecified (principal); E43 Unspecified severe protein-calorie malnutrition; E87.1 Hypo-osmolality and hyponatremia; E87.2 Acidosis; I42.9 Cardiomyopathy, unspecified; E78.5 Hyperlipidemia, unspecified; E86.0 Dehydration; E87.6 Hypokalemia; J44.9 Chronic obstructive pulmonary disease, unspecified; N18.9 Chronic kidney disease, unspecified; I12.9 Hypertensive chronic kidney disease with stage 1 through stage 4 chronic kidney disease, or unspecified chronic kidney disease; M81.0 Age-related osteoporosis without current pathological fracture; E78.00 Pure hypercholesterolemia, unspecified; Z20.822 Contact with and (suspected) exposure to COVID-19; Z87.01 Personal history of pneumonia (recurrent); Z87.891 Personal history of nicotine dependence
CPT/HCPCS: 51702; 71045; 71250; 76770; 80053; 80061; 81001; 82570; 83036; 83605; 83735; 84100; 84145; 84300; 84443; 84540; 85025; 85379; 85610; 85730; 86140; 87015; 87040; 87206; 92610; 93005; 94640; 94799; 99291; J0696; J1644; J7030; J7040; J7042; Q9967; 36415-L1; 36415-TC; U0003

== ENCOUNTER 2021-02-04 20:12 | Inpatient (IN) | payer MEDICARE, OTHER ==
[~2021-02-04] VITALS: Ht 152.4 cm; Wt 41.0 kg
[2021-02-04] MEDS ORDERED: 0.9% SODIUM CHLORIDE 10 ML SYRINGE IVP PRN (21:00)
[2021-02-04] MEDS ORDERED: SODIUM CHLORIDE 0.9% 1,250 ML IV ONE (21:00)
[2021-02-04 21:25] LABS: BASOPHILS % (AUTO) 0.7 % (0.0-2.0); EOSINOPHILS % (AUTO) 0.1 % (1.0-6.0); HEMATOCRIT 35.6 % (36-46); HEMOGLOBIN 11.6 g/dL (12.0-16.0); LYMPHOCYTES # (AUTO) 0.8 K/uL (1.0-4.8); LYMPHOCYTES % (AUTO) 7.6 % (22.0-44.0); MEAN CORPUSCULAR HEMOGLOBIN 29.1 pg (26.0-34.0); MEAN CORPUSCULAR HGB CONC 32.6 G/dL (31.0-37.0); MEAN CORPUSCULAR VOLUME 89 fL (80-100); MONOCYTES # (AUTO) 0.3 K/uL (0.1-1.0); MONOCYTES % (AUTO) 3.1 % (2.0-9.0); NEUTROPHILS # (AUTO) 9.2 K/uL (1.8-7.7); PLATELET COUNT (AUTO) 188 K/uL (150-450); RED BLOOD CELL COUNT(AUTO) 3.98 MIL/uL (4.00-5.20); RED CELL DISTRIBUTION WIDTH 14.4 % (11.5-14.5)
[2021-02-04 21:39] LABS: ANION GAP 10 mmol/L (8-16); CALCIUM, TOTAL 8.5 mg/dL (8.8-10.5); CARBON DIOXIDE 27 mmol/L (22-29); CHLORIDE 98 mmol/L (98-107); CREATININE 0.94 mg/dL (0.60-1.30); GLOMERULAR FILTR. RATE CALC 57 mL/min (>60); GLUCOSE,RANDOM 114 mg/dL (70-110); POTASSIUM 3.7 mmol/L (3.5-5.1); SODIUM SERUM 135 mmol/L (136-145); UREA NITROGEN, BLOOD 17 mg/dL (7-18)
[2021-02-04 21:42] LABS: PROTHROMBIN TIME 10.9 SEC (9.4-11.6)
[2021-02-04 21:45] LABS: SALICYLATE 1.4 mg/dL (2.8-20.0)
[2021-02-04 21:46] LABS: NEUTROPHILS % (AUTO) 88.5 % (40.0-70.0); TROPONIN I 0.17 ng/mL (0.00-0.05)
[2021-02-04 21:55] LABS: AMMONIA < 10 umol/L (11-32)
[2021-02-04 21:56] LABS: LACTIC ACID 2.6 mmol/L (0.4-2.0)
[2021-02-04 22:03] LABS: ALANINE AMINOTRANSFERASE 16 U/L (12-78); ALBUMIN 3.3 g/dL (3.4-5.0); ALKALINE PHOSPHATASE 58 U/L (46-116); ASPARTATE AMINOTRANSFERASE 23 U/L (15-37); BILIRUBIN,TOTAL 0.5 mg/dL (0.1-1.0); CREATINE KINASE, TOTAL ONLY 76 U/L (26-192); LIPASE 144 U/L (73-393); TOTAL PROTEIN, SERUM 7.7 g/dL (6.4-8.2)
[2021-02-04 22:07] LABS: ACETAMINOPHEN < 2 mcg/mL (10-30)
[2021-02-04 22:10] LABS: APPEARANCE,URINE CLEAR (CLEAR); BILIRUBIN,URINE NEGATIVE (NEGATIVE); GLUCOSE, URINE (UA) NEGATIVE (NEGATIVE); KETONES,URINE TRACE mg/dL (NEGATIVE); LEUKOCYTE ESTERASE ,URINE NEGATIVE (NEGATIVE); NITRATE,URINE NEGATIVE (NEGATIVE); OCCULT BLOOD,URINE TRACE (NEGATIVE); PH,URINE 6.5 (5.0-8.0); PROTEIN,URINE NEGATIVE (NEGATIVE); UROBILINOGEN,URINE 0.2 mg/dL (<=1.0)
[2021-02-04] MEDS ORDERED: ASPIRIN 300 MG RECTAL SUPPOSITORY PR ONE (22:15)
[2021-02-04 22:22] LABS: B-TYPE NATRIURETIC PEPTIDE 377 pg/mL (0-100)
[2021-02-04] MEDS ORDERED: ONDANSETRON HCL 4 MG/2 ML VIAL IVP PRN (22:30)
[2021-02-04 22:39] LABS: COVID AG,FIA SOURCE NASOPHARYNGEAL
[2021-02-04 22:41] LABS: BACTERIA,URINE None Seen /HPF (None Seen); RBC,URINE 0-2 /HPF (0-2); SQUAMOUS EPITHELIAL CELL,UR None Seen /LPF (None Seen); WBC,URINE 0-2 /HPF (0-5)
[2021-02-04 22:59] LABS: % IRON SATURATION 17.8 % (22-44); IRON, SERUM 36 mcg/dL (50-175); TOTAL IRON BINDING CAPACITY 202 mcg/dL (250-450)
[2021-02-04] MEDS ORDERED: PIPERACILLIN SODIUM/TAZOBACTAM 2.25 GM in DEXTROSE 5%-WATER 50 ML IV ONE (23:00)
[2021-02-04] MEDS: SODIUM CHLORIDE 0.9% 1,000 ML IV SCH (23:40)
[2021-02-05] VITALS (7 sets, daily range): BP systolic 79–112; BP diastolic 47–57
[2021-02-05] MEDS: PIPERACILLIN SODIUM/TAZOBACTAM 2.25 GM in DEXTROSE 5%-WATER 50 ML IV SCH ×3 (06:00→18:06)
[2021-02-05] MEDS ORDERED: GADOTERATE MEGLUMINE 10 MMOL/20 ML VIAL IVP ONE (08:04)
[2021-02-05] MEDS: HEPARIN SODIUM,PORCINE 5,000 UNITS/ML VIAL SQ SCH ×3 (09:48→15:44)
[2021-02-05] MEDS: SODIUM CHLORIDE 0.9% 1,000 ML IV SCH (12:50)
[2021-02-06 04:32] VITALS: BP 105/61
[2021-02-06] MEDS: PIPERACILLIN SODIUM/TAZOBACTAM 2.25 GM in DEXTROSE 5%-WATER 50 ML IV SCH ×4 (05:07→18:03)
[2021-02-06] MEDS: HEPARIN SODIUM,PORCINE 5,000 UNITS/ML VIAL SQ SCH ×3 (05:07→16:22)
[2021-02-06] MEDS: SODIUM CHLORIDE 0.9% 1,000 ML IV SCH ×2 (05:08→20:53)
[2021-02-06 08:34] VITALS: BP 98/48
[2021-02-06 11:30] VITALS: BP 100/51
[2021-02-06 16:14] VITALS: BP 101/54
[2021-02-06] MEDS ORDERED: LACTULOSE 20 GM/30 ML SOLUTION UDCUP PO ONE (18:30)
[2021-02-06 19:45] VITALS: BP 119/56
[2021-02-07] VITALS (7 sets, daily range): BP systolic 104–125; BP diastolic 53–61
[2021-02-07] MEDS: PIPERACILLIN SODIUM/TAZOBACTAM 2.25 GM in DEXTROSE 5%-WATER 50 ML IV SCH ×5 (01:08→23:56)
[2021-02-07] MEDS: HEPARIN SODIUM,PORCINE 5,000 UNITS/ML VIAL SQ SCH ×4 (01:09→23:56)
[2021-02-07 06:46] LABS: ANION GAP 3 mmol/L (8-16); CALCIUM, TOTAL 7.8 mg/dL (8.8-10.5); CARBON DIOXIDE 22 mmol/L (22-29); CHLORIDE 110 mmol/L (98-107); CREATININE 0.71 mg/dL (0.60-1.30); GLUCOSE,RANDOM 74 mg/dL (70-110); POTASSIUM 3.1 mmol/L (3.5-5.1); SODIUM SERUM 135 mmol/L (136-145); UREA NITROGEN, BLOOD 5 mg/dL (7-18)
[2021-02-07 06:47] LABS: GLOMERULAR FILTR. RATE CALC > 60 mL/min (>60)
[2021-02-07] MEDS: SODIUM CHLORIDE 0.9% 1,000 ML IV SCH ×2 (09:29→23:55)
[2021-02-07] MEDS: CARVEDILOL 3.125 MG TABLET PO SCH (09:45)
[2021-02-07] MEDS ORDERED: POTASSIUM CHLORIDE 20 MEQ ER TABLET PO PRN (15:15)
[2021-02-07] MEDS ORDERED: POTASSIUM CHL 10 MEQ/WATER 50 ML IV PRN (15:15)
[2021-02-07] MEDS ORDERED: SODIUM PHOS/SODIUM BIPHOS 133 ML ENEMA PR ONE (16:00)
[2021-02-07] MEDS ORDERED: MIRTAZAPINE 15 MG TABLET PO SCH (21:00)
[2021-02-07] MEDS ORDERED: QUEtiapine FUMARATE 25 MG TABLET PO SCH (21:00)
[2021-02-07] MEDS ORDERED: METOPROLOL SUCCINATE 25 MG ER TABLET PO SCH (21:00)
[2021-02-08 03:40] VITALS: BP 129/70
[2021-02-08] MEDS: PIPERACILLIN SODIUM/TAZOBACTAM 2.25 GM in DEXTROSE 5%-WATER 50 ML IV SCH ×2 (06:00→11:32)
[2021-02-08] MEDS: CARVEDILOL 3.125 MG TABLET PO SCH (07:57)
[2021-02-08] MEDS: HEPARIN SODIUM,PORCINE 5,000 UNITS/ML VIAL SQ SCH (07:58)
[2021-02-08 08:10] VITALS: BP 141/63
[2021-02-08] MEDS ORDERED: MULTIVITAMINS WITH MINERALS, THERAPEUTIC TABLET PO SCH (08:30)
[2021-02-08] MEDS ORDERED: DOCUSATE SODIUM 250 MG CAPSULE PO SCH (09:00)
[2021-02-08] MEDS: SODIUM CHLORIDE 0.9% 1,000 ML IV SCH (11:31)
[2021-02-08 11:44] VITALS: BP 127/68
[2021-02-08] MEDS ORDERED: HEPA500018 SQ (13:20)
[2021-02-08] MEDS ORDERED: METO25XL PO (13:20)
[2021-02-08] MEDS ORDERED: ONDA-104 PO (13:22)
[2021-02-08] MEDS ORDERED: QUET25TA PO (13:22)
[2021-02-08] MEDS ORDERED: AMOX1TAB15 PO (13:25)
[2021-02-08] MEDS ORDERED: LACT-90 PO (13:26)
== END 2021-02-08 14:50 | DRG 70 ==
LOC: EMS 20:18 → 5N 22:00 → 5S 02-07 16:25
PROVIDERS: ADMIT Internal Medicine; ATTEND Internal Medicine
DX: G93.40 Encephalopathy, unspecified (principal); E43 Unspecified severe protein-calorie malnutrition; I50.23 Acute on chronic systolic (congestive) heart failure; R47.01 Aphasia; E87.2 Acidosis; Z68.1 Body mass index [BMI] 19.9 or less, adult; N17.9 Acute kidney failure, unspecified; E78.5 Hyperlipidemia, unspecified; Z60.2 Problems related to living alone; R91.1 Solitary pulmonary nodule; R53.81 Other malaise; I11.0 Hypertensive heart disease with heart failure; J47.9 Bronchiectasis, uncomplicated; R77.8 Other specified abnormalities of plasma proteins; E86.0 Dehydration; Z20.822 Contact with and (suspected) exposure to COVID-19; E78.00 Pure hypercholesterolemia, unspecified; I08.1 Rheumatic disorders of both mitral and tricuspid valves; R13.10 Dysphagia, unspecified; Z87.891 Personal history of nicotine dependence; Z79.899 Other long term (current) drug therapy
CPT/HCPCS: 70450; 70553; 71045; 74176; 80048; 80053; 81001; 82140; 82271; 82550; 83540; 83550; 83605; 83690; 83735; 83880; 84132; 84145; 84484; 85025; 85610; 87040; 92526; 92610; 93005; 93306; 97163; 97530; 99285; G0480; G0481; J1644; J2543; J7030; J7060; Q9967; 36415-L1; 36415-TC; U0003